=== PATIENT | male | born 1985 | race Caucasian/White ===

== ENCOUNTER 2022-12-27 20:19 | Emergency (ER) | payer SELFPAY ==
[~2022-12-27] VITALS: Ht 182.9 cm; Wt 86.2 kg
[2022-12-27 20:24] VITALS: BP_SYST 133
[2022-12-27 21:13] VITALS: BP_SYST 133
== END 2022-12-27 21:13 ==
LOC: SED 20:19
DX: Z02.89 Encounter for other administrative examinations (principal); I10 Essential (primary) hypertension; Z79.899 Other long term (current) drug therapy
CPT/HCPCS: 99283